=== PATIENT | female | born 1995 | race American Indian/Alaskan Native ===

== ENCOUNTER 2022-02-23 03:01 | Emergency (ER) | payer MEDICAID ==
--- NOTE | 2022-02-23 07:39 | XRay Report ---
CHEST 2 VIEWS INDICATION: chest pain. COMPARISON: None FINDINGS: SUPPORT DEVICES: None. HEART: Within normal limits. LUNGS/PLEURA: No acute air space or interstitial disease. No pneumothorax. ADDITIONAL FINDINGS: None. IMPRESSION: 1. No acute findings. Signer Name: Otilio Lee MD Signed: 02/23/2022 7:35 AM Workstation Name: [id number]
--- NOTE | 2022-02-23 08:57 | Electrocardiograph Report ---
[facility] Test Date: 2022-02-23 Test Time: 06:57:42 Pat Name: SINA SALMON Department: Room: Gender: F Paste Maker: SHAHBAZ : 1995 Requested By: ED DOC Order Number: [id number] Reading MD: Castillo Tang Measurements Intervals [place] Rate: 64 P: 49 MT: 122 QRS: 60 QRSD: 79 T: 49 QT: 384 QTc: 397 Interpretive Statements Sinus rhythm No previous ECG available for comparison Electronically Signed On 02-23-2022 8:56:53 EDT by Castillo Tang
--- NOTE | 2022-02-23 09:43 | Emergency Department Report ---
ED ENT HPI - General Chief complaint: Chest Pain Stated complaint: CHEST PAIN/ABD PAIN Time Seen by Provider: 02/23/22 09:38 Source: patient Mode of arrival: Ambulatory Limitations: No Limitations - History of Present Illness Initial comments: 26-year-old black female with a past medical history of asthma presents to the emergency department for evaluation of few day history of cough, congestion, and shortness of breath. She states that her cough has been persistent and productive for several days and now she has pain and tightness in her chest when she coughs only. She denies dizziness, fever, and diaphoresis. She states that she works in a very hot environment, and has required her to use her inhaler more often than usual. She is also requesting a refill of her albuterol inhaler. MD complaint: other (Cough congestion shortness of breath) -: Gradual, days(s) (3-4) Severity: moderate Severity scale (0 -10): 5 Quality: aching Consistency: intermittent Worsens with: other (Cough) Associated Symptoms: cough, rhinorrhea. denies: fever, gum swelling, toothache, pain with swallowing, sore throat, tinnitus, hearing loss, discharge from ear - Related Data Previous Rx's Medication Instructions Recorded Last Taken Type Albuterol Mdi (or & Nicu Only) 2 puff IH QID PRN #8.5 gram 02/23/22 Unknown Rx [ProAir HFA Inhaler] Brompheniramine/Pseudoephed/Dm 10 ml PO TID PRN #120 ml 02/23/22 Unknown Rx [Bromfed Dm Cough Syrup] Prednisone [predniSONE 10 mg 10 mg PO .TAPER #1 pack 02/23/22 Unknown Rx (6-Day Pack, 21 Tabs)] Allergies Allergy/AdvReac Type Severity Reaction Status Date / Time No Known Allergies Allergy Unverified 02/23/22 06:46 ED Dental HPI - General Chief complaint: Chest Pain Stated complaint: CHEST PAIN/ABD PAIN Time Seen by Provider: 02/23/22 09:38 Source: patient Mode of arrival: Ambulatory Limitations: No Limitations - Related Data Previous Rx's Medication Instructions Recorded Last Taken Type Albuterol Mdi (or & Nicu Only) 2 puff IH QID PRN #8.5 gram 02/23/22 Unknown Rx [ProAir HFA Inhaler] Brompheniramine/Pseudoephed/Dm 10 ml PO TID PRN #120 ml 02/23/22 Unknown Rx [Bromfed Dm Cough Syrup] Prednisone [predniSONE 10 mg 10 mg PO .TAPER #1 pack 02/23/22 Unknown Rx (6-Day Pack, 21 Tabs)] Allergies Allergy/AdvReac Type Severity Reaction Status Date / Time No Known Allergies Allergy Unverified 02/23/22 06:46 ED Review of Systems ROS: Stated complaint: CHEST PAIN/ABD PAIN Other details as noted in HPI Comment: All other systems reviewed and negative Constitutional: denies: chills, fever, malaise, weakness Eyes: denies: vision change ENT: congestion. denies: ear pain, throat pain, dental pain Respiratory: cough, shortness of breath. denies: SOB with exertion, stridor, wheezing Cardiovascular: chest pain. denies: palpitations, dyspnea on exertion, orthopnea, edema, syncope, paroxysmal nocturnal dyspnea Gastrointestinal: denies: abdominal pain, nausea, vomiting, diarrhea, hematemesis, melena, hematochezia Genitourinary: denies: urgency, dysuria, frequency Musculoskeletal: denies: back pain Skin: denies: rash, lesions Neurological: denies: headache, weakness, numbness, paresthesias ED Past Medical Hx - Past Medical History Previous Medical History?: Yes Hx Asthma: Yes - Surgical History Past Surgical History?: No - Social History Smoking Status: Current Every Day Smoker Substance Use Type: Marijuana - Medications Home Medications: Home Medications Medication Instructions Recorded Confirmed Last Taken Type Albuterol Mdi (or & Nicu Only) 2 puff IH QID PRN #8.5 gram 02/23/22 Unknown Rx [ProAir HFA Inhaler] Brompheniramine/Pseudoephed/Dm 10 ml PO TID PRN #120 ml 02/23/22 Unknown Rx [Bromfed Dm Cough Syrup] Prednisone [predniSONE 10 mg 10 mg PO .TAPER #1 pack 02/23/22 Unknown Rx (6-Day Pack, 21 Tabs)] ED Physical Exam - General Limitations: No Limitations General appearance: alert, in no apparent distress - Head Head exam: Present: atraumatic, normocephalic - Eye Eye exam: Present: normal appearance. Absent: conjunctival injection - ENT ENT exam: Absent: normal exam (Bilateral nasal mucosal edema), normal orophraynx (Erythema noted to posterior oropharynx) - Expanded ENT Exam Expanded Throat exam: Negative: tonsillar erythema, tonsillomegaly, tonsillar exudate, R peritonsillar mass, L peritonsillar mass - Neck Neck exam: Present: normal inspection, full ROM. Absent: tenderness, lymphadenopathy - Respiratory Respiratory exam: Present: normal lung sounds bilaterally, chest wall tenderness. Absent: respiratory distress, wheezes, rales, rhonchi, stridor - Cardiovascular Cardiovascular Exam: Present: regular rate, normal heart sounds - GI/Abdominal GI/Abdominal exam: Present: soft, normal bowel sounds. Absent: distended, tenderness, guarding, rebound, rigid - Extremities Exam Extremities exam: Present: normal inspection, normal capillary refill. Absent: pedal edema, joint swelling, calf tenderness - Back Exam Back exam: Present: normal inspection. Absent: CVA tenderness (R), CVA tenderness (L), vertebral tenderness - Neurological Exam Neurological exam: Present: alert, oriented X3, normal gait - Psychiatric Psychiatric exam: Present: normal affect, normal mood - Skin Skin exam: Present: warm, dry, intact, normal color ED Course Vital Signs 02/23/22 02/23/22 02/23/22 06:38 06:45 09:48 Temperature 98.6 F Pulse Rate 76 72 Respiratory 18 12 Rate Blood Pressure 103/74 105/62 [Left] O2 Sat by Pulse 100 100 98 Oximetry ED Medical Decision Making - EKG Data EKG shows normal: sinus rhythm - EKG Data Interpretation: no acute changes, normal EKG - Radiology Data Radiology results: report reviewed, image reviewed Chest x-ray: FINDINGS: SUPPORT DEVICES: None. HEART: Within normal limits. LUNGS/PLEURA: No acute air space or interstitial disease. No pneumothorax. ADDITIONAL FINDINGS: None. IMPRESSION: 1. No acute findings. - Medical Decision Making 26-year-old black female with a past medical history of asthma presents to the emergency department for evaluation of few day history of cough, congestion, and shortness of breath. She states that her cough has been persistent and productive for several days and now she has pain and tightness in her chest when she coughs only. She denies dizziness, fever, and diaphoresis. She states that she works in a very hot environment, and has required her to use her inhaler more often than usual. She is also requesting a refill of her albuterol inhaler. Chest x-ray without any acute abnormalities noted, and EKG without any acute ischemic changes noted. Patient will be treated for URI with cough and congestion with Medrol Dosepak and Bromfed to use for cough. She was also given a refill of her albuterol inhaler. She is advised to take medications as prescribed and follow-up with her primary care provider if no improvement or worsening symptoms. She is advised to return to the emergency department for any concerning symptoms. She verbalizes understanding of and agreement with plan of care. Critical care attestation.: If time is entered above; I have spent that time in minutes in the direct care of this critically ill patient, excluding procedure time. ED Disposition Clinical Impression: URI with cough and congestion Disposition: 01 HOME / SELF CARE / HOMELESS Is pt being admited?: No Does the pt Need Aspirin: No Condition: Stable Instructions: Cough, Adult, [id number], Viral Respiratory Infection, [id number] Additional Instructions: Take medications as prescribed. Follow-up with primary care provider if no improvement or worsening symptoms. Return to the emergency department as needed. Prescriptions: Brompheniramine/Pseudoephed/Dm [Bromfed Dm Cough Syrup] 10 ml PO TID PRN #120 ml PRN Reason: Cough Prednisone [predniSONE 10 mg (6-Day Pack, 21 Tabs)] 10 mg PO .TAPER #1 pack Albuterol Mdi (or & Nicu Only) [ProAir HFA Inhaler] 2 puff IH QID PRN #8.5 gram PRN Reason: Shortness Of Breath Referrals: DIEGO COUGHLIN MD [Staff Physician] - 3-5 Days Forms: Work/School Release Form(ED) Time of Disposition: 09:42
[2022-02-23 09:54] VITALS: BP 105/62
== END 2022-02-23 10:35 | disposition home or self-care (01) ==
LOC: ED 03:01
DX: J06.9 Acute upper respiratory infection, unspecified (principal); J45.909 Unspecified asthma, uncomplicated; F17.200 Nicotine dependence, unspecified, uncomplicated; Z79.899 Other long term (current) drug therapy
CPT/HCPCS: 71046; 93005; 99283